=== PATIENT | female | born 1995 | race Caucasian/White ===

== ENCOUNTER 2018-02-20 01:24 | Inpatient (IN) | payer BC ==
[2018-02-20] MEDS ORDERED: Tranexamic Acid 1,000 MG in Sodium Chloride 0.9% 100 ML IV PRN (03:22)
[2018-02-20] MEDS ORDERED: Water For Irrigation,Sterile 1,000 ML Container IRR PRN (03:22)
[2018-02-20] MEDS ORDERED: Misoprostol 200 MCG Tab PO PRN (03:22)
[2018-02-20] MEDS ORDERED: Carboprost Tromethamine 250 MCG/1 ML Amp IM PRN (03:22)
[2018-02-20] MEDS ORDERED: Nalbuphine 10 MG/1 ML Vial IVPUSH PRN (03:22)
[2018-02-20] MEDS ORDERED: Butorphanol 1 MG/ML SDV IVPUSH PRN (03:22)
[2018-02-20] MEDS ORDERED: Methylergonovine 0.2 MG/1 ML Amp IM PRN (03:22)
[2018-02-20] MEDS ORDERED: Lidocaine 1% 50 ML MDV INJECT PRN (03:22)
[2018-02-20] MEDS ORDERED: Sodium Chloride 0.9% 2.5 ML Syringe FLUSH PRN (03:22)
[2018-02-20] MEDS ORDERED: Sodium Chloride 0.9% 10 ML Syringe FLUSH PRN (03:22)
[2018-02-20] MEDS ORDERED: Oxytocin/0.9 % Sodium Chloride 30 UNIT/500 ML BAG IV SCH (03:30)
[2018-02-20] MEDS: Lactated Ringers 1,000 ML IV SCH ×3 (04:06→08:55)
--- NOTE | 2018-02-20 05:13 | PCM.PREANE ---
Preanesthetic Assessment - Anesthesia/Transfusion/Family Hx Anesthesia History: Prior Anesthesia Reaction (States has difficulty waking up) Family History of Anesthesia Reaction: No - Review of Systems General: No Symptoms Pulmonary: No Symptoms Cardiovascular: No Symptoms Gastrointestinal: No Symptoms Neurological: No Symptoms Other: Reports: None (Denies any personal or family hx of bleeding or clotting problems) - Physical Assessment Height: 1.6 m Weight: 85.729 kg ASA Class: 2 Mental Status: Alert & Oriented x3 Airway Class: Mallampati = 2 Dentition: Reports: Normal Dentition ROM/Head Extension: Full - Lab Values: Laboratory Last Values WBC 15.62 K/uL (4.0-11.0) H 02/20/18 03:34 RBC 4.66 M/uL (4.30-5.90) 02/20/18 03:34 Hgb 14.0 g/dL (12.0-16.0) 02/20/18 03:34 Hct 40.0 % (36.0-46.0) 02/20/18 03:34 MCV 85.8 fL (80.0-98.0) 02/20/18 03:34 MCH 30.0 pg (27.0-32.0) 02/20/18 03:34 MCHC 35.0 g/dL (31.0-37.0) 02/20/18 03:34 RDW Std Deviation 41.1 fl (28.0-62.0) 02/20/18 03:34 RDW Coeff of Nakia 14 % (11.0-15.0) 02/20/18 03:34 Plt Count 221 K/uL (150-400) 02/20/18 03:34 MPV 12.30 fL (7.40-12.00) H 02/20/18 03:34 Nucleated RBC % 0.0 /100WBC 02/20/18 03:34 Nucleated RBCs # 0 K/uL 02/20/18 03:34 Blood Type A POSITIVE 02/20/18 03:34 Antibody Screen NEGATIVE 02/20/18 03:34 Cold Antibody Screen POSITIVE 02/20/18 03:34 - Allergies Allergies/Adverse Reactions: Allergies Allergy/AdvReac Type Severity Reaction Status Date / Time No Known Allergies Allergy Verified 02/20/18 01:38 - Acknowledgements Anesthesia Type Planned: Epidural Pt an Appropriate Candidate for the Planned Anesthesia: Yes Alternatives and Risks of Anesthesia Discussed w Pt/Guardian: Yes Pt/Guardian Understands and Agrees with Anesthesia Plan: Yes PreAnesthesia Questionnaire HEENT History: Reports: None Cardiovascular History: Reports: None Respiratory History: Reports: None Gastrointestinal History: Reports: None Genitourinary History: Reports: None TRANSIT CLERK History: Reports: Musculoskeletal History: Reports: None Neurological History: Reports: None Psychiatric History: Reports: Depression Endocrine/Metabolic History: Reports: None Hematologic History: Reports: None Immunologic History: Reports: None Oncologic (Cancer) History: Reports: None Dermatologic History: Reports: None - Infectious Disease History Infectious Disease History: Reports: None - Past Surgical History Head Surgeries/Procedures: Reports: None HEENT Surgical History: Reports: None Cardiovascular Surgical History: Reports: None GI Surgical History: Reports: Appendectomy, Cholecystectomy Endocrine Surgical History: Reports: None - SUBSTANCE USE Smoking Status *Q: Never Smoker Days Per Week of Alcohol Use: 0 Number of Drinks Per Day: 0 Total Drinks Per Week: 0 Recreational Drug Use History: No - HOME MEDS Home Medications: Home Meds Vit W-Ca,Fe,FA(<1 mg) [ Vitamins] 1 each PO DAILY 06/18/16 [ History] Ondansetron HCl [Zofran] 4 mg PO PRN 02/20/18 [History] Ranitidine HCl [Zantac] 150 mg PO PRN 02/20/18 [History] - CURRENT (IN HOUSE) MEDS Current Meds: Current Medications Butorphanol Tartrate (Stadol) 1 mg IVPUSH Q1H PRN PRN Reason: Pain Carboprost Tromethamine (Hemabate Ds) 250 mcg IM ASDIRECTED PRN PRN Reason: Post Hemorrhage Tranexamic Acid 1,000 mg/ (Sodium Chloride) 110 mls @ 660 mls/hr IV ONETIME PRN PRN Reason: Bleeding Lactated Ringer's (Ringers, Lactated) 1,000 mls @ 150 mls/hr IV ASDIRECTED ALEJANDRINA Last Admin: 02/20/18 04:51 Dose: 150 mls/hr Oxytocin/Sodium Chloride (Oxytocin 30 Unit/500 Ml-Ns) 30 unit in 500 mls @ 999 mls/hr IV TITRATE ALEJANDRINA Lidocaine HCl (Xylocaine 1%) 50 ml INJECT .ONCE PRN PRN Reason: Laceration repair Methylergonovine Maleate (Methergine) 0.2 mg IM ASDIRECTED PRN PRN Reason: Post Hemorrhage Misoprostol (Cytotec) 200 mcg PO .ONCE PRN PRN Reason: Post Hemorrhage Nalbuphine HCl (Nubain) 10 mg IVPUSH Q1H PRN PRN Reason: Pain (severe 7-10) Sodium Chloride (Saline Flush) 10 ml FLUSH ASDIRECTED PRN PRN Reason: Keep Vein Open Sodium Chloride (Saline Flush) 2.5 ml FLUSH ASDIRECTED PRN PRN Reason: Keep Vein Open Sterile Water (Sterile Water For Irrigation) 1,000 ml IRR ASDIRECTED PRN PRN Reason: delivery Discontinued Medications Fentanyl/Bupivacaine HCl (Jkwnzedd-Akjza-Dw 2 Mcg/Ml-0.125%) Confirm Administered Dose 100 mls @ as directed EP [place]-[facility] ONE Stop: 02/20/18 04:30
[2018-02-20] MEDS ORDERED: Lanolin 100% Cream 7 GM Tube TOP PRN (09:51)
[2018-02-20] MEDS ORDERED: Bisacodyl 10 MG Supp RECTAL PRN (09:51)
[2018-02-20] MEDS ORDERED: Ibuprofen 400 MG Tab PO PRN (09:51)
[2018-02-20] MEDS ORDERED: Docusate Sodium 100 MG Cap PO PRN (09:51)
[2018-02-20] MEDS ORDERED: Benzocaine/Menthol 20%-0.5% Spray 78 GM Cannister TOP PRN (09:51)
[2018-02-20] MEDS ORDERED: Acetaminophen 500 MG Tab PO PRN ×2 (09:51)
[2018-02-20] MEDS ORDERED: Witch Hazel Medicated Pads 40/Jar TOP PRN (09:51)
[2018-02-20] MEDS ORDERED: oxyCODONE 5 MG Tab PO PRN (09:51)
[2018-02-20] MEDS: Ibuprofen 800 MG Tab PO PRN ×3 (10:46→23:09)
--- NOTE | 2018-02-20 14:50 | OR ---
SURGEON: Maryellen Navarro MD BOX OFFICE CLERK: Lorna Werner MS IV DATE OF PROCEDURE: 02/20/2018 PREOPERATIVE DIAGNOSES: 1. Term at 37 weeks and 2 days. 2. Spontaneous labor. POSTOPERATIVE DIAGNOSES: 1. Term at 37 weeks and 2 days. 2. Spontaneous labor. 3. Delivered. PROCEDURE: Spontaneous vaginal delivery. ANESTHESIA: Epidural. ESTIMATED BLOOD LOSS: 100 mL. COMPLICATIONS: None. DISPOSITION: Mother and baby stable in Labor and Delivery room, bonding. FINDINGS: Male , weight 3240gram , scores 8 and 9 at 1 and 5 minutes respectively. Grossly normal placenta with three-vessel cord. Intact perineum. BRIEF HISTORY: Ms Lord is a 22-year-old G2, P1-0-0-1, who presented at the early hours of this morning at 37 weeks and 2 days gestation with regular contractions since about 6:00 p.m. the previous evening and they had increased in both frequency and intensity. She denied vaginal bleeding. Denied leakage of fluid and reported movement. care was uncomplicated. GBS negative. On admission, she was found to be 4 cm dilated, 80% effaced, station -1. Artificial rupture of membranes was performed with clear amniotic fluid noted. She subsequently requested and received epidural for pain management. Thereafter, she progressed nicely to full dilatation and commenced active pushing. She was set up for delivery in modified dorsal lithotomy position. PROCEDURE IN DETAIL: She had a spontaneous vaginal delivery of live male in direct occipital anterior positions, clear amniotic fluid at delivery, one loose nuchal cord which was easily reduced. Anterior and posterior shoulders and the rest of the baby were delivered without difficulty. Baby was vigorous and cried spontaneously at . The baby was delivered onto the maternal abdomen with the nursery nurse in attendance, stimulating and drying him. With delivery of the , oxytocin infusion, titration was started for active management of third stage of labor. Cord blood and gases samples were obtained. The placenta was delivered by controlled cord traction, appeared to be complete and intact. Examination of the perineum revealed no lacerations. Uterine massage was performed. The uterus was found to be well contracted below the umbilicus. The patient tolerated the procedure well. Sponge, instrument, and needle counts were correct at the end of the delivery. ADUMVIV / MODL /[id number] GARY
--- NOTE | 2018-02-21 07:42 | PCM.PNPP ---
<Cassie Werner - Last Filed: 02/21/18 07:48> - General Info Date of Service: 02/21/18 Admission Dx/Problem (Free Text): 37 2/7 . Subjective Update: Patient is doing well. Pain is controlled with medications. . Lochia WNL. Tolerating diet with no n/v. Urinating. Diarrhea. Ambulating. Anticipate discharge today. Functional Status: Reports: Pain Controlled, Tolerating Diet, Ambulating, Urinating - Review of Systems General: Denies: Fever, Chills HEENT: Denies: Headaches Pulmonary: Denies: Shortness of Breath, Pleuritic Chest Pain Cardiovascular: Denies: Chest Pain, Palpitations, Lightheadedness Gastrointestinal: Reports: Diarrhea. Denies: Abdominal Pain, Nausea, Vomiting Genitourinary: Denies: Dysuria Psychiatric: Reports: No Symptoms - General Info Date of Service: 02/21/18 - Patient Data Vital Signs - Most Recent: Last Vital Signs Temp 36.3 C 02/21/18 03:30 Pulse 81 02/21/18 03:30 Resp 16 02/21/18 03:30 BP 122/77 02/21/18 03:30 Pulse Ox 96 02/21/18 03:30 Weight - Most Recent: 85.729 kg Lab Results - Last 24 Hours: Laboratory Results - last 24 hr 02/20/18 02/21/18 Range/Units 09:27 05:50 Hgb 12.5 (12.0-16.0) g/dL Hct 36.9 (36.0-46.0) % Cord ABG pH 7.213 (7.18-7.38) Cord ABG Base Excess -6 (-10--2) Cord VBG pH 7.384 (7.25-7.45) Cord VBG Base Excess -3 (-10--2) Med Orders - Current: Current Medications Acetaminophen (Tylenol Extra Strength) 500 mg PO Q4H PRN PRN Reason: Pain Acetaminophen (Tylenol Extra Strength) 1,000 mg PO Q4H PRN PRN Reason: Pain Last Admin: 02/21/18 02:27 Dose: 1,000 mg Benzocaine/Menthol (Dermoplast Pain Relief 20%-0.5% [place]) 78 gm TOP ASDIRECTED PRN PRN Reason: Perineal Comfort Measure Bisacodyl (Dulcolax) 10 mg RECTAL .ONCE PRN PRN Reason: Constipation Docusate Sodium (Colace) 100 mg PO BID PRN PRN Reason: Constipation Emollient Ointment (Lansinoh Hpa) 0 gm TOP ASDIRECTED PRN PRN Reason: Sore Nipples Ibuprofen (Motrin) 400 mg PO Q4H PRN PRN Reason: Pain Ibuprofen (Motrin) 800 mg PO Q6H PRN PRN Reason: Pain Last Admin: 02/20/18 23:09 Dose: 800 mg Oxycodone HCl (Oxycodone) 5 mg PO Q2H PRN PRN Reason: Pain Witch Bell (Tucks) 1 pad TOP ASDIRECTED PRN PRN Reason: comfort care Discontinued Medications Butorphanol Tartrate (Stadol) 1 mg IVPUSH Q1H PRN PRN Reason: Pain Carboprost Tromethamine (Hemabate Ds) 250 mcg IM ASDIRECTED PRN PRN Reason: Post Hemorrhage Tranexamic Acid 1,000 mg/ (Sodium Chloride) 110 mls @ 660 mls/hr IV ONETIME PRN PRN Reason: Bleeding Lactated Ringer's (Ringers, Lactated) 1,000 mls @ 150 mls/hr IV ASDIRECTED [facility] Last Admin: 02/20/18 08:55 Dose: 150 mls/hr Oxytocin/Sodium Chloride (Oxytocin 30 Unit/500 Ml-Ns) 30 unit in 500 mls @ 999 mls/hr IV TITRATE [facility] Last Admin: 02/20/18 09:27 Dose: 999 mls/hr Fentanyl/Bupivacaine HCl (Xncqyzha-Oxflk-Lu 2 Mcg/Ml-0.125%) Confirm Administered Dose 100 mls @ as directed EP .STK-MED ONE Stop: 02/20/18 04:30 Last Admin: 02/20/18 06:09 Dose: Not Given Lidocaine HCl (Xylocaine 1%) 50 ml INJECT .ONCE PRN PRN Reason: Laceration repair Methylergonovine Maleate (Methergine) 0.2 mg IM ASDIRECTED PRN PRN Reason: Post Hemorrhage Misoprostol (Cytotec) 200 mcg PO .ONCE PRN PRN Reason: Post Hemorrhage Nalbuphine HCl (Nubain) 10 mg IVPUSH Q1H PRN PRN Reason: Pain (severe 7-10) Sodium Chloride (Saline Flush) 10 ml FLUSH ASDIRECTED PRN PRN Reason: Keep Vein Open Sodium Chloride (Saline Flush) 2.5 ml FLUSH ASDIRECTED PRN PRN Reason: Keep Vein Open Sterile Water (Sterile Water For Irrigation) 1,000 ml IRR ASDIRECTED PRN PRN Reason: delivery - Interaction Disposition, : in Room with Family Interaction: Holding Infant Feeding: Continues to Breastfeed Support Person: - Recovery Exam Fundal Tone: Firm Fundal Level: 2 Fingerbreadths Below Umbilicus Fundal Placement: Midline Lochia Amount: Scant Lochia Color: Rubra/Red Episiotomy/Laceration: None Bladder Status: Voiding Urinary Elimination: Voided - Exam General: Alert, Oriented, No Acute Distress Lungs: Clear to Auscultation, Normal Respiratory Effort Cardiovascular: Regular Rate, Regular Rhythm GI/Abdominal Exam: Soft, Non-Tender Extremities: Pedal Edema Skin: Warm, Dry Psy/Mental Status: Alert - Assessment Assessment:: 37 12/15. Anticipate discharge today. - Plan Plan:: Reviewed discharge instructions. Continue PNV while . Pelvic rest for 6 weeks. Call if fever > 101 or bleeding through a heavy pad in an hour. Follow-up appointment in 6 weeks. <Catarina Landeros - Last Filed: 02/21/18 07:57> - Patient Data Vital Signs - Most Recent: Last Vital Signs Temp 36.3 C 02/21/18 03:30 Pulse 81 02/21/18 03:30 Resp 16 02/21/18 03:30 BP 122/77 02/21/18 03:30 Pulse Ox 96 02/21/18 03:30 Lab Results - Last 24 Hours: Laboratory Results - last 24 hr 02/20/18 02/21/18 Range/Units 09:27 05:50 Hgb 12.5 (12.0-16.0) g/dL Hct 36.9 (36.0-46.0) % Cord ABG pH 7.213 (7.18-7.38) Cord ABG Base Excess -6 (-10--2) Cord VBG pH 7.384 (7.25-7.45) Cord VBG Base Excess -3 (-10--2) Med Orders - Current: Current Medications Acetaminophen (Tylenol Extra Strength) 500 mg PO Q4H PRN PRN Reason: Pain Acetaminophen (Tylenol Extra Strength) 1,000 mg PO Q4H PRN PRN Reason: Pain Last Admin: 02/21/18 02:27 Dose: 1,000 mg Benzocaine/Menthol (Dermoplast Pain Relief 20%-0.5% [place]) 78 gm TOP ASDIRECTED PRN PRN Reason: Perineal Comfort Measure Bisacodyl (Dulcolax) 10 mg RECTAL .ONCE PRN PRN Reason: Constipation Docusate Sodium (Colace) 100 mg PO BID PRN PRN Reason: Constipation Emollient Ointment (Lansinoh Hpa) 0 gm TOP ASDIRECTED PRN PRN Reason: Sore Nipples Ibuprofen (Motrin) 400 mg PO Q4H PRN PRN Reason: Pain Ibuprofen (Motrin) 800 mg PO Q6H PRN PRN Reason: Pain Last Admin: 02/20/18 23:09 Dose: 800 mg Oxycodone HCl (Oxycodone) 5 mg PO Q2H PRN PRN Reason: Pain Witch Bell (Tucks) 1 pad TOP ASDIRECTED PRN PRN Reason: comfort care Discontinued Medications Butorphanol Tartrate (Stadol) 1 mg IVPUSH Q1H PRN PRN Reason: Pain Carboprost Tromethamine (Hemabate Ds) 250 mcg IM ASDIRECTED PRN PRN Reason: Post Hemorrhage Tranexamic Acid 1,000 mg/ (Sodium Chloride) 110 mls @ 660 mls/hr IV ONETIME PRN PRN Reason: Bleeding Lactated Ringer's (Ringers, Lactated) 1,000 mls @ 150 mls/hr IV ASDIRECTED [facility] Last Admin: 02/20/18 08:55 Dose: 150 mls/hr Oxytocin/Sodium Chloride (Oxytocin 30 Unit/500 Ml-Ns) 30 unit in 500 mls @ 999 mls/hr IV TITRATE [facility] Last Admin: 02/20/18 09:27 Dose: 999 mls/hr Fentanyl/Bupivacaine HCl (Zjkhxyfw-Wetvz-Hy 2 Mcg/Ml-0.125%) Confirm Administered Dose 100 mls @ as directed [facility]-MED ONE Stop: 02/20/18 04:30 Last Admin: 02/20/18 06:09 Dose: Not Given Lidocaine HCl (Xylocaine 1%) 50 ml INJECT .ONCE PRN PRN Reason: Laceration repair Methylergonovine Maleate (Methergine) 0.2 mg IM ASDIRECTED PRN PRN Reason: Post Hemorrhage Misoprostol (Cytotec) 200 mcg PO .ONCE PRN PRN Reason: Post Hemorrhage Nalbuphine HCl (Nubain) 10 mg IVPUSH Q1H PRN PRN Reason: Pain (severe 7-10) Sodium Chloride (Saline Flush) 10 ml FLUSH ASDIRECTED PRN PRN Reason: Keep Vein Open Sodium Chloride (Saline Flush) 2.5 ml FLUSH ASDIRECTED PRN PRN Reason: Keep Vein Open Sterile Water (Sterile Water For Irrigation) 1,000 ml IRR ASDIRECTED PRN PRN Reason: delivery - Problem List & Annotations (1) Vaginal delivery SNOMED Code(s): 119937463 Code(s): O80 - ENCOUNTER FOR FULL-TERM UNCOMPLICATED DELIVERY Status: Acute Current Visit: Yes - Problem List Review Problem List Initiated/Reviewed/Updated: Yes - Plan Plan:: PPD#1 after , stable, minimal lochia. Having cramping with , improved with ibuprofen. Discharge instructions reviewed. Discussed diarrhea, she states she has some irritable bowel syndrome, this is not unusual for her and is "better than constipation" She will call if she has any concerns.
[2018-02-21 08:21] VITALS: BP 118/77
--- NOTE | 2018-02-22 07:32 | PCM48HPAN ---
Post Anesthesia Note - EVALUATION WITHIN 48HRS OF ANESTHETIC Vital Signs in Normal Range: Yes Patient Participated in Evaluation: Yes Respiratory Function Stable: Yes Airway Patent: Yes Cardiovascular Function Stable: Yes Hydration Status Stable: Yes Pain Control Satisfactory: Yes Nausea and Vomiting Control Satisfactory: Yes Mental Status Recovered: Yes Resp Rate: 18
== END 2018-02-21 13:00 | disposition home or self-care (01) | DRG 560 ==
LOC: MW.OBCHECK 01:24 → MW.OB 01:27 → MW.OBCHECK 03:22 → MW.OB 03:22 → OBSVTOIN 09:27 → MW.OB 13:50
PROVIDERS: ADMIT Obstetrics & Gynecology; ATTEND Obstetrics & Gynecology
PROC: 10E0XZZ Delivery of Products of Conception, External Approach (ICD-10-PCS; principal; 2018-02-20)
PROC: 10907ZC Drainage of Amniotic Fluid, Therapeutic from Products of Conception, Via Natural or Artificial Opening (ICD-10-PCS; 2018-02-20)
DX: O69.81X0 Labor and delivery complicated by cord around neck, without compression, not applicable or unspecified (principal); Z3A.37 37 weeks gestation of pregnancy; Z37.0 Single live birth
CPT/HCPCS: 36415; 51702; 59025; 59409; 82803; 85014; 85018; 85027; 86156; 86850; 86900; 86901; A9270-GY; J2590; J7120

== ENCOUNTER 2020-12-15 09:04 | Inpatient (IN) | payer BC ==
[2020-12-15] MEDS ORDERED: Sodium Chloride 0.9% 10 ML SDV IV PRN (09:45)
[2020-12-15] MEDS ORDERED: Carboprost Tromethamine 250 MCG/1 ML Amp IM PRN (09:45)
[2020-12-15] MEDS ORDERED: Butorphanol 1 MG/ML SDV IVPUSH PRN (09:45)
[2020-12-15] MEDS ORDERED: Sodium Chloride 0.9% 2.5 ML Syringe FLUSH PRN (09:45)
[2020-12-15] MEDS ORDERED: Water For Irrigation,Sterile 1,000 ML Container IRR PRN (09:45)
[2020-12-15] MEDS ORDERED: Methylergonovine 0.2 MG/1 ML Amp IM PRN (09:45)
[2020-12-15] MEDS ORDERED: Sodium Chloride 0.9% 10 ML Syringe FLUSH PRN (09:45)
[2020-12-15] MEDS ORDERED: Oxytocin/0.9 % Sodium Chloride 30 UNIT/500 ML BAG IV SCH (09:45)
[2020-12-15] MEDS ORDERED: Misoprostol 200 MCG Tab PO PRN (09:45)
[2020-12-15] MEDS ORDERED: Lidocaine 1% 50 ML MDV INJECT PRN (09:45)
[2020-12-15] MEDS ORDERED: Nalbuphine 10 MG/1 ML Vial IVPUSH PRN (09:45)
[2020-12-15] MEDS ORDERED: Tranexamic Acid 1,000 MG in Sodium Chloride 0.9% 100 ML IV PRN (09:45)
[2020-12-15] MEDS ORDERED: Ondansetron 4 MG/2 ML SDV IVPUSH PRN (09:45)
[2020-12-15] MEDS ORDERED: Oxytocin/Lactated Ringers 30 UNIT/500 ML BAG IV SCH (10:00)
[2020-12-15] MEDS: Lactated Ringers 1,000 ML IV SCH ×2 (10:15→10:49)
--- NOTE | 2020-12-15 10:39 | PCM.LDHP ---
L&D History of Present Illness - General Date of Service: 12/15/20 Admit Problem/Dx: Patient Status Order with Admit Dx/Problem 12/15/20 09:05 Patient Status [ADT] Routine Admission Diagnosis/Problem Admission Diagnosis/Problem Source of Information: Patient History Limitations: Reports: No Limitations - History of Present Illness Introduction:: 25yo @39w GA here with contractions x3hrs. Patient denies VB, LOF. Good FM care unremarkable. labs: A+, Abs screen neg, RI, RPR NR, HBsAg neg, HIV neg, GBS neg. - Related Data Allergies/Adverse Reactions: Allergies Allergy/AdvReac Type Severity Reaction Status Date / Time No Known Allergies Allergy Verified 12/15/20 09:20 Home Medications: Home Meds Vit Calc,Iron,Folic [ Vitamins] 1 each PO DAILY 06/18/16 [History] Ranitidine HCl [Zantac] 150 mg PO PRN 02/20/18 [History] ondansetron HCL [Zofran] 4 mg PO PRN 02/20/18 [History] Ibuprofen [IJD: Ibuprofen] 800 mg PO Q6H PRN #30 tablet 02/21/18 [Rx] Past Medical History HEENT History: Reports: None Cardiovascular History: Reports: None Respiratory History: Reports: None Gastrointestinal History: Reports: None Genitourinary History: Reports: None 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: Other OB/BYN History: ovarian cysts Musculoskeletal History: Reports: None Neurological History: Reports: None Psychiatric History: Reports: Depression Endocrine/Metabolic History: Reports: None Hematologic History: Reports: None Immunologic History: Reports: None Oncologic (Cancer) History: Reports: None Dermatologic History: Reports: None - Infectious Disease History Infectious Disease History: Reports: None - Past Surgical History Head Surgeries/Procedures: Reports: None HEENT Surgical History: Reports: None Cardiovascular Surgical History: Reports: None GI Surgical History: Reports: Appendectomy, Cholecystectomy Endocrine Surgical History: Reports: None Social & Family History - Family History Cardiac: Reports: Other (See Below) Other Cardiac Family History: heart disease OBGYN: Reports: Neurological: Reports: Alzheimers Disease Endocrine/Metabolic: Reports: Diabetes, type II Oncologic: Reports: Leukemia, Pancreatic, Renal, Other (See Below) Other Oncologic Family History: renal cell carcinoma - Caffeine Use Caffeine Use: Reports: Soda H&P Review of Systems - Review of Systems: Review Of Systems: See Below General: Reports: No Symptoms HEENT: Reports: No Symptoms Pulmonary: Reports: No Symptoms Cardiovascular: Reports: No Symptoms Gastrointestinal: Reports: No Symptoms Genitourinary: Reports: No Symptoms Musculoskeletal: Reports: No Symptoms Skin: Reports: No Symptoms Psychiatric: Reports: No Symptoms Neurological: Reports: No Symptoms Hematologic/Lymphatic: Reports: No Symptoms Immunologic: Reports: No Symptoms L&D Exam - Exam Exam: See Below - Vital Signs Weight: 92.533 kg - OB Specific Contraction Duration (sec): 30 Contraction Frequency (min): 2 Contraction Intensity: Moderate Movement: Active Heart Rate (FHR) Variability: Moderate (6-25 bmp) Presentation: Vertex Estimated Weight: [id number] - Avila Score Avila Score Cervix Position: Midposition Avila Score Consistency: Soft Avila Score Effacement: >80% Avila Score Dilation: > 5 cm Avila Score Infant's Station: -3 Avila Score Total: 9 - Exam General: Alert, Oriented Neck: Supple Lungs: Normal Respiratory Effort Cardiovascular: Regular Rate GI/Abdominal Exam: Soft Extremities: Normal Inspection Psychiatric: Alert, Normal Affect, Normal Mood - Patient Data Lab Results Last 24 hrs: Laboratory Results - last 24 hr 12/15/20 Range/Units 09:55 WBC 10.65 (4.0-11.0) K/uL RBC 4.68 (4.30-5.90) M/uL Hgb 13.9 (12.0-16.0) g/dL Hct 41.0 (36.0-46.0) % MCV 87.6 (80.0-98.0) fL MCH 29.7 (27.0-32.0) pg MCHC 33.9 (31.0-37.0) g/dL RDW Std Deviation 43.4 (28.0-62.0) fl RDW Coeff of Nakia 14 (11.0-15.0) % Plt Count 169 (150-400) K/uL MPV 13.00 H (7.40-12.00) fL Nucleated RBC % 0.0 /100WBC Nucleated RBCs # 0 K/uL Result Diagrams: 12/15/20 09:55 - Problem List (1) Term SNOMED Code(s): 13488125 ICD Code: Z34.90 - ENCNTR FOR SUPRVSN OF NORMAL , UNSP, UNSP TRIMESTER Status: Acute Current Visit: Yes (2) Normal labor SNOMED Code(s): 38063449 ICD Code: O80 - ENCOUNTER FOR FULL-TERM UNCOMPLICATED DELIVERY; Z37.9 - OUTCOME OF DELIVERY, UNSPECIFIED Status: Acute Current Visit: Yes Problem List Initiated/Reviewed/Updated: Yes Orders Last 24hrs: Active Orders 24 hr Category Date Time Status Patient Status [ADT] Routine ADT 12/15/20 09:05 Active Heart Tones [RC] CONTINUOUS Care 12/15/20 09:45 Active Non Stress Test [RC] PER UNIT ROUTINE Care 12/15/20 09:20 Active Notify Provider [RC] PRN Care 12/15/20 09:45 Active Up ad Zari [RC] ASDIRECTED Care 12/15/20 09:20 Active Vaginal Exam [RC] Click to Edit Care 12/15/20 09:20 Active Vaginal Exam [RC] PRN Care 12/15/20 09:45 Active Vital Signs [RC] PER UNIT ROUTINE Care 12/15/20 09:20 Active CORONAVIRUS COVID-19 ELIANE [MOLEC] Routine Lab 12/15/20 10:00 Received RPR (SYPHILIS SERO) W/ RFLX [REF] Routine Lab 12/15/20 09:55 Received TYPE AND SCREEN [BBK] Routine Lab 12/15/20 09:55 Received Butorphanol [Stadol] Med 12/15/20 09:45 Active 1 mg IVPUSH Q1H PRN Carboprost Tromethamine [Hemabate DS] Med 12/15/20 09:45 Active 250 mcg IM ASDIRECTED PRN Lactated Ringers [Ringers, Lactated] 1,000 ml Med 12/15/20 09:45 Active IV ASDIRECTED Lidocaine 1% [Xylocaine 1%] Med 12/15/20 09:45 Active 50 ml INJECT ONETIME PRN Methylergonovine [Methergine] Med 12/15/20 09:45 Active 0.2 mg IM ASDIRECTED PRN Nalbuphine [Nubain] Med 12/15/20 09:45 Active 10 mg IVPUSH Q1H PRN Ondansetron [Zofran] Med 12/15/20 09:45 Active 4 mg IVPUSH Q4H PRN Oxytocin/0.9 % Sodium Chloride [Oxytocin 30 Unit/500 ML Med 12/15/20 09:45 Active -NS] 30 unit in 500 ml IV TITRATE Oxytocin/Lactated Ringers [Pitocin in LR 30 Units/500 Med 12/15/20 10:00 Active ML] 30 unit in 500 ml IV TITRATE Sodium Chloride 0.9% [Normal Saline] Med 12/15/20 09:45 Active 10 ml IV ASDIRECTED PRN Sodium Chloride 0.9% [Saline Flush] Med 12/15/20 09:45 Active 10 ml FLUSH ASDIRECTED PRN Sodium Chloride 0.9% [Saline Flush] Med 12/15/20 09:45 Active 2.5 ml FLUSH ASDIRECTED PRN Tranexamic Acid [Cyklokapron] 1,000 mg Med 12/15/20 09:45 Active Sodium Chloride 0.9% [Normal Saline] 100 ml IV ONETIME Water For Irrigation,Sterile [Sterile Water for Med 12/15/20 09:45 Active Irrigation] 1,000 ml IRR ASDIRECTED PRN miSOPROStoL [Cytotec] Med 12/15/20 09:45 Active 200 mcg PO ONETIME PRN Peripheral IV Insertion Adult [OM.PC] Routine Oth 12/15/20 09:45 Ordered Resuscitation Status Routine Resus Stat 12/15/20 09:20 Ordered Medication Orders Butorphanol Tartrate (Stadol) 1 mg IVPUSH Q1H PRN PRN Reason: Pain Carboprost Tromethamine (Hemabate Ds) 250 mcg IM ASDIRECTED PRN PRN Reason: Post Hemorrhage Lactated Ringer's (Ringers, Lactated) 1,000 mls @ 150 mls/hr IV ASDIRECTED ALEJANDRINA Last Admin: 12/15/20 10:15 Dose: 150 mls/hr Documented by: FRAN Oxytocin/Sodium Chloride (Oxytocin 30 Unit/500 Ml-Ns) 30 unit in 500 mls @ 500 mls/hr IV TITRATE [facility] Tranexamic Acid 1,000 mg/ (Sodium Chloride) 110 mls @ 660 mls/hr IV ONETIME PRN PRN Reason: Bleeding Oxytocin/Lactated Ringer's (Pitocin In Lr 30 Units/500 Ml) 30 unit in 500 mls @ 2 mls/hr IV TITRATE ALEJANDRINA; Protocol Lidocaine HCl (Xylocaine 1%) 50 ml INJECT ONETIME PRN PRN Reason: Laceration repair Methylergonovine Maleate (Methergine) 0.2 mg IM ASDIRECTED PRN PRN Reason: Post Hemorrhage Misoprostol (Cytotec) 200 mcg PO ONETIME PRN PRN Reason: Post Hemorrhage Nalbuphine HCl (Nubain) 10 mg IVPUSH Q1H PRN PRN Reason: Pain (severe 7-10) Ondansetron HCl (Zofran) 4 mg IVPUSH Q4H PRN PRN Reason: Nausea/Vomiting Sodium Chloride (Saline Flush) 10 ml FLUSH ASDIRECTED PRN PRN Reason: Keep Vein Open Sodium Chloride (Saline Flush) 2.5 ml FLUSH ASDIRECTED PRN PRN Reason: Keep Vein Open Sodium Chloride (Normal Saline) 10 ml IV ASDIRECTED PRN PRN Reason: IV Use Sterile Water (Sterile Water For Irrigation) 1,000 ml IRR ASDIRECTED PRN PRN Reason: delivery Assessment/Plan Comment:: 25yo at 39wGA here in active labor. Cat 1 strip. Avila score 9 Expectant management. Epidural PRN
[2020-12-15] MEDS ORDERED: fentaNYL 100 MCG/2 ML SDV ONE (10:49)
[2020-12-15] MEDS ORDERED: Ropivacaine 0.2% PF 2 MG/ML 20 ML SDV ONE (10:49)
[2020-12-15] MEDS ORDERED: Ropivacaine HCl/PF 0 ML ONE (10:49)
--- NOTE | 2020-12-15 11:23 | PCM.PREANE ---
Preanesthetic Assessment - Procedure Proposed Procedure: ASTRID vs Intrathecal - Anesthesia/Transfusion/Family Hx Anesthesia History: Prior Anesthesia Without Reaction (States has difficulty waking up) Family History of Anesthesia Reaction: No Transfusion History: No Prior Transfusion(s) Intubation History: Unknown - Review of Systems General: No Symptoms Pulmonary: No Symptoms Cardiovascular: No Symptoms Gastrointestinal: No Symptoms Neurological: No Symptoms Other: Reports: None - Physical Assessment NPO Status Date: 12/15/20 NPO Status Time: 11:19 Height: 1.6 m Weight: 92.533 kg ASA Class: 2 Mental Status: Alert & Oriented x3 Airway Class: Mallampati = 2 Dentition: Reports: Normal Dentition Thyro-Mental Finger Breadths: 3 Mouth Opening Finger Breadths: 3 ROM/Head Extension: Full Lungs: Clear to Auscultation Cardiovascular: Regular Rate - Lab Values: Laboratory Last Values WBC 10.65 K/uL (4.0-11.0) 12/15/20 09:55 RBC 4.68 M/uL (4.30-5.90) 12/15/20 09:55 Hgb 13.9 g/dL (12.0-16.0) 12/15/20 09:55 Hct 41.0 % (36.0-46.0) 12/15/20 09:55 MCV 87.6 fL (80.0-98.0) 12/15/20 09:55 MCH 29.7 pg (27.0-32.0) 12/15/20 09:55 MCHC 33.9 g/dL (31.0-37.0) 12/15/20 09:55 RDW Std Deviation 43.4 fl (28.0-62.0) 12/15/20 09:55 RDW Coeff of Nakia 14 % (11.0-15.0) 12/15/20 09:55 Plt Count 169 K/uL (150-400) 12/15/20 09:55 MPV 13.00 fL (7.40-12.00) H 12/15/20 09:55 Nucleated RBC % 0.0 /100WBC 12/15/20 09:55 Nucleated RBCs # 0 K/uL 12/15/20 09:55 SARS-CoV-2 RNA (ELIANE) NEGATIVE (NEGATIVE) 12/15/20 10:00 Blood Type A POSITIVE 12/15/20 09:55 Antibody Screen NEGATIVE 12/15/20 09:55 - Allergies Allergies/Adverse Reactions: Allergies Allergy/AdvReac Type Severity Reaction Status Date / Time No Known Allergies Allergy Verified 12/15/20 09:20 - Anesthesia Plan Pre-Op Medication Ordered: None - Acknowledgements Anesthesia Type Planned: Spinal Pt an Appropriate Candidate for the Planned Anesthesia: Yes Alternatives and Risks of Anesthesia Discussed w Pt/Guardian: Yes Pt/Guardian Understands and Agrees with Anesthesia Plan: Yes Additional Comments: Patient @ 5cm when called. Currently @ 8cm. Pain 10+/10. Active labor. Discussed with patient and physician. Opted for for intrathecal. Discussed, ? answered, permit signed, will proceed. PreAnesthesia Questionnaire HEENT History: Reports: None Cardiovascular History: Reports: None Respiratory History: Reports: None Gastrointestinal History: Reports: None Genitourinary History: Reports: None [employer]PER[employer] History: Reports: Other OB/BYN History: ovarian cysts Musculoskeletal History: Reports: None Neurological History: Reports: None Psychiatric History: Reports: Depression Endocrine/Metabolic History: Reports: None Hematologic History: Reports: None Immunologic History: Reports: None Oncologic (Cancer) History: Reports: None Dermatologic History: Reports: None - Infectious Disease History Infectious Disease History: Reports: None - Past Surgical History Head Surgeries/Procedures: Reports: None HEENT Surgical History: Reports: None Cardiovascular Surgical History: Reports: None GI Surgical History: Reports: Appendectomy, Cholecystectomy Endocrine Surgical History: Reports: None - HOME MEDS Home Medications: Home Meds Vit Calc,Iron,Folic [ Vitamins] 1 each PO DAILY 06/18/16 [History] Ranitidine HCl [Zantac] 150 mg PO PRN 02/20/18 [History] ondansetron HCL [Zofran] 4 mg PO PRN 02/20/18 [History] Ibuprofen [IJD: Ibuprofen] 800 mg PO Q6H PRN #30 tablet 02/21/18 [Rx] - CURRENT (IN HOUSE) MEDS Current Meds: Current Medications Butorphanol Tartrate (Stadol) 1 mg IVPUSH Q1H PRN PRN Reason: Pain Carboprost Tromethamine (Hemabate Ds) 250 mcg IM ASDIRECTED PRN PRN Reason: Post Hemorrhage Lactated Ringer's (Ringers, Lactated) 1,000 mls @ 150 mls/hr IV ASDIRECTED ALEJANDRINA Last Admin: 12/15/20 10:49 Dose: 999 mls/hr Documented by: Oxytocin/Sodium Chloride (Oxytocin 30 Unit/500 Ml-Ns) 30 unit in 500 mls @ 500 mls/hr IV TITRATE [facility] Tranexamic Acid 1,000 mg/ (Sodium Chloride) 110 mls @ 660 mls/hr IV ONETIME PRN PRN Reason: Bleeding Oxytocin/Lactated Ringer's (Pitocin In Lr 30 Units/500 Ml) 30 unit in 500 mls @ 2 mls/hr IV TITRATE [facility]; Protocol Lidocaine HCl (Xylocaine 1%) 50 ml INJECT ONETIME PRN PRN Reason: Laceration repair Methylergonovine Maleate (Methergine) 0.2 mg IM ASDIRECTED PRN PRN Reason: Post Hemorrhage Misoprostol (Cytotec) 200 mcg PO ONETIME PRN PRN Reason: Post Hemorrhage Nalbuphine HCl (Nubain) 10 mg IVPUSH Q1H PRN PRN Reason: Pain (severe 7-10) Ondansetron HCl (Zofran) 4 mg IVPUSH Q4H PRN PRN Reason: Nausea/Vomiting Sodium Chloride (Saline Flush) 10 ml FLUSH ASDIRECTED PRN PRN Reason: Keep Vein Open Sodium Chloride (Saline Flush) 2.5 ml FLUSH ASDIRECTED PRN PRN Reason: Keep Vein Open Sodium Chloride (Normal Saline) 10 ml IV ASDIRECTED PRN PRN Reason: IV Use Sterile Water (Sterile Water For Irrigation) 1,000 ml IRR ASDIRECTED PRN PRN Reason: delivery Discontinued Medications Fentanyl (Sublimaze) Confirm Administered Dose 100 mcg .ROUTE .STK-MED ONE Stop: 12/15/20 10:50 Ropivacaine (Naropin 0.2%) Confirm Administered Dose 100 mls @ as directed .ROUTE .STK-MED ONE Stop: 12/15/20 10:50 Ropivacaine (Naropin 0.2%) Confirm Administered Dose 20 ml .ROUTE .STK-MED ONE Stop: 12/15/20 10:50
--- NOTE | 2020-12-15 12:11 | PCM.DEL ---
L & D Note - General Info Date of Service: 12/15/20 Mother's Due Date: 12/22/20 - Delivery Note Labor: Spontaneous Delivery Outcome: Livebirth Infant Delivery Method: Spontaneous Vaginal Delivery-Single Presentation: Vertex Nuchal Cord: Present, Reduced Anesthesia Type: Intrathecal Episiotomy Type: None Laceration: None Placenta: Intact Cord: 3 Vessels Estimated Blood Loss: 200 Resuscitation Needed: No [place]: Suctioned, Stimulated, Warmed Score 1 min: 8 Score 5 min: 9 Delivery Comments (Free Text/Narrative):: 25yo G3 now P3003 @ 39w GA after uncomplicated . course was unremarkable. of a live female, weight pending and Apgars 8/9. Delivered CARTER, loose nuchal cord x1, No meconium. Vertex and body delivered without difficulty. Cord clamped and cut. Nose and mouth bulb suctioned; Baby placed on Mom's abdomen. Placenta delivered spontaneously, intact. Fundus firm, minimal bleeding. Placenta appears intact with 3 vessel cord. Perineum and vagina inspected, no lacerations. EBL 200cc. Patient tolerated procedure well, recovering in LDR. Infant by her side. - General Info Date of Service: 12/15/20 Admission Dx/Problem (Free Text): Patient Status Order with Admit Dx/Problem 12/15/20 09:05 Patient Status [ADT] Routine Admission Diagnosis/Problem Admission Diagnosis/Problem Subjective Update: Upon arrival, mother was found to be 3-4cm dialted. She progressed quickly to 6 then 9cm. At her request, intrathecal analgesia was administered. AROM was performed shortly after, clear moderate amount of fluid. Less than 15mns later she was fully dilated, ready to push. Functional Status: Reports: Pain Controlled - Review of Systems General: Reports: No Symptoms HEENT: Reports: No Symptoms Pulmonary: Reports: No Symptoms Cardiovascular: Reports: No Symptoms Gastrointestinal: Reports: No Symptoms Genitourinary: Reports: No Symptoms Musculoskeletal: Reports: No Symptoms Skin: Reports: No Symptoms Neurological: Reports: No Symptoms Psychiatric: Reports: No Symptoms - Patient Data Weight - Most Recent: 92.533 kg Lab Results Last 24 Hours: Laboratory Results - last 24 hr 12/15/20 12/15/20 12/15/20 Range/Units 09:55 09:55 10:00 WBC 10.65 (4.0-11.0) K/uL RBC 4.68 (4.30-5.90) M/uL Hgb 13.9 (12.0-16.0) g/dL Hct 41.0 (36.0-46.0) % MCV 87.6 (80.0-98.0) fL MCH 29.7 (27.0-32.0) pg MCHC 33.9 (31.0-37.0) g/dL RDW Std Deviation 43.4 (28.0-62.0) fl RDW Coeff of Nakia 14 (11.0-15.0) % Plt Count 169 (150-400) K/uL MPV 13.00 H (7.40-12.00) fL Nucleated RBC % 0.0 /100WBC Nucleated RBCs # 0 K/uL SARS-CoV-2 RNA (ELIANE) NEGATIVE (NEGATIVE) Blood Type A POSITIVE Antibody Screen NEGATIVE Med Orders - Current: Current Medications Butorphanol Tartrate (Stadol) 1 mg IVPUSH Q1H PRN PRN Reason: Pain Carboprost Tromethamine (Hemabate Ds) 250 mcg IM ASDIRECTED PRN PRN Reason: Post Hemorrhage Lactated Ringer's (Ringers, Lactated) 1,000 mls @ 150 mls/hr IV ASDIRECTED [facility] Last Admin: 12/15/20 10:49 Dose: 999 mls/hr Documented by: Oxytocin/Sodium Chloride (Oxytocin 30 Unit/500 Ml-Ns) 30 unit in 500 mls @ 500 mls/hr IV TITRATE [facility] Last Admin: 12/15/20 11:53 Dose: 500 mls/hr Documented by: Tranexamic Acid 1,000 mg/ (Sodium Chloride) 110 mls @ 660 mls/hr IV ONETIME PRN PRN Reason: Bleeding Oxytocin/Lactated Ringer's (Pitocin In Lr 30 Units/500 Ml) 30 unit in 500 mls @ 2 mls/hr IV TITRATE [facility]; Protocol Lidocaine HCl (Xylocaine 1%) 50 ml INJECT ONETIME PRN PRN Reason: Laceration repair Methylergonovine Maleate (Methergine) 0.2 mg IM ASDIRECTED PRN PRN Reason: Post Hemorrhage Misoprostol (Cytotec) 200 mcg PO ONETIME PRN PRN Reason: Post Hemorrhage Nalbuphine HCl (Nubain) 10 mg IVPUSH Q1H PRN PRN Reason: Pain (severe 7-10) Ondansetron HCl (Zofran) 4 mg IVPUSH Q4H PRN PRN Reason: Nausea/Vomiting Sodium Chloride (Saline Flush) 10 ml FLUSH ASDIRECTED PRN PRN Reason: Keep Vein Open Sodium Chloride (Saline Flush) 2.5 ml FLUSH ASDIRECTED PRN PRN Reason: Keep Vein Open Sodium Chloride (Normal Saline) 10 ml IV ASDIRECTED PRN PRN Reason: IV Use Sterile Water (Sterile Water For Irrigation) 1,000 ml IRR ASDIRECTED PRN PRN Reason: delivery Discontinued Medications Fentanyl (Sublimaze) Confirm Administered Dose 100 mcg .ROUTE .STK-MED ONE Stop: 12/15/20 10:50 Ropivacaine (Naropin 0.2%) Confirm Administered Dose 100 mls @ as directed .ROUTE .STK-MED ONE Stop: 12/15/20 10:50 Ropivacaine (Naropin 0.2%) Confirm Administered Dose 20 ml .ROUTE .STK-MED ONE Stop: 12/15/20 10:50 - Exam General: Alert, Oriented Neck: Supple Lungs: Normal Respiratory Effort Cardiovascular: Regular Rate GI/Abdominal Exam: Soft, Non-Tender (Female) Exam: Normal External Exam Extremities: No Pedal Edema Psy/Mental Status: Alert, Normal Affect, Normal Mood - Problem List & Annotations (1) Term SNOMED Code(s): 45727217 Code(s): Z34.90 - ENCNTR FOR SUPRVSN OF NORMAL , UNSP, UNSP TRIMESTER Status: Acute Current Visit: Yes (2) Normal labor SNOMED Code(s): 40963171 Code(s): O80 - ENCOUNTER FOR FULL-TERM UNCOMPLICATED DELIVERY; Z37.9 - OUTCOME OF DELIVERY, UNSPECIFIED Status: Acute Current Visit: Yes (3) Term delivered SNOMED Code(s): 26608034, 125731526 Code(s): O80 - ENCOUNTER FOR FULL-TERM UNCOMPLICATED DELIVERY Status: Acute Current Visit: Yes - Problem List Review Problem List Initiated/Reviewed/Updated: Yes - My Orders Last 24 Hours: My Active Orders 12/15/20 09:05 Patient Status [ADT] Routine 12/15/20 09:20 Non Stress Test [RC] PER UNIT ROUTINE Up ad Zari [RC] ASDIRECTED Vaginal Exam [RC] Click to Edit Vital Signs [RC] PER UNIT ROUTINE Resuscitation Status Routine 12/15/20 09:45 Heart Tones [RC] CONTINUOUS Notify Provider [RC] PRN Vaginal Exam [RC] PRN Butorphanol [Stadol] 1 mg IVPUSH Q1H PRN Carboprost Tromethamine [Hemabate DS] 250 mcg IM ASDIRECTED PRN Lactated Ringers [Ringers, Lactated] 1,000 ml IV ASDIRECTED Lidocaine 1% [Xylocaine 1%] 50 ml INJECT ONETIME PRN Methylergonovine [Methergine] 0.2 mg IM ASDIRECTED PRN Nalbuphine [Nubain] 10 mg IVPUSH Q1H PRN Ondansetron [Zofran] 4 mg IVPUSH Q4H PRN Oxytocin/0.9 % Sodium Chloride [Oxytocin 30 Unit/500 ML-NS] 30 unit in 500 ml IV TITRATE Sodium Chloride 0.9% [Normal Saline] 10 ml IV ASDIRECTED PRN Sodium Chloride 0.9% [Saline Flush] 10 ml FLUSH ASDIRECTED PRN Sodium Chloride 0.9% [Saline Flush] 2.5 ml FLUSH ASDIRECTED PRN Tranexamic Acid [Cyklokapron] 1,000 mg Sodium Chloride 0.9% [Normal Saline] 100 ml IV ONETIME Water For Irrigation,Sterile [Sterile Water for Irrigation] 1,000 ml IRR ASDIRECTED PRN miSOPROStoL [Cytotec] 200 mcg PO ONETIME PRN Peripheral IV Insertion Adult [OM.PC] Routine 12/15/20 09:55 RPR (SYPHILIS SERO) W/ RFLX [REF] Routine 12/15/20 10:00 Oxytocin/Lactated Ringers [Pitocin in LR 30 Units/500 ML] 30 unit in 500 ml IV TITRATE - Plan Plan:: S/P uncomplicated at 39w GA. Mother and baby doing well Routine care
[2020-12-15] MEDS ORDERED: Ibuprofen 400 MG Tab PO PRN (16:28)
[2020-12-15] MEDS ORDERED: Witch Hazel Medicated Pads 40/Jar TOP PRN (16:28)
[2020-12-15] MEDS ORDERED: Lanolin 100% Cream 7 GM Tube TOP PRN (16:28)
[2020-12-15] MEDS ORDERED: Acetaminophen 500 MG Tab PO PRN (16:28)
[2020-12-15] MEDS ORDERED: Docusate Sodium 100 MG Cap PO PRN (16:28)
[2020-12-15] MEDS ORDERED: Bisacodyl 10 MG Supp RECTAL PRN (16:28)
[2020-12-15] MEDS ORDERED: Benzocaine/Menthol 20%-0.5% Spray 78 GM Cannister TOP PRN (16:28)
[2020-12-15] MEDS: Acetaminophen 500 MG Tab PO PRN ×2 (16:39→21:49)
[2020-12-15] MEDS: Ibuprofen 800 MG Tab PO PRN (16:40)
--- NOTE | 2020-12-15 19:53 | PCM48HPAN ---
Post Anesthesia Note - EVALUATION WITHIN 48HRS OF ANESTHETIC Vital Signs in Normal Range: Yes Patient Participated in Evaluation: Yes Respiratory Function Stable: Yes Airway Patent: Yes Cardiovascular Function Stable: Yes Hydration Status Stable: Yes Pain Control Satisfactory: Yes Nausea and Vomiting Control Satisfactory: Yes Mental Status Recovered: Yes Vital Signs: Last Vital Signs Temp 36.8 C 12/15/20 19:43 Pulse 72 12/15/20 19:43 Resp 16 12/15/20 19:43 BP 111/87 12/15/20 19:43 Pulse Ox 98 12/15/20 19:43 - COMMENTS/OBSERVATIONS Free Text/Narrative:: Doing well. No problems post.
[2020-12-16] MEDS: Ibuprofen 800 MG Tab PO PRN (04:37)
[2020-12-16] MEDS: Acetaminophen 500 MG Tab PO PRN (08:12)
[2020-12-16 08:19] VITALS: BP 122/76; PULSE 64
--- NOTE | 2020-12-16 18:18 | PCM.DCSUM1 ---
Discharge Summary - Hospital Course Free Text/Narrative:: 25yo G3 now P3003 @ 39w GA after uncomplicated . course was unremarkable. of a live female, Apgars 8/9. No lacerations. EBL 200cc. Patient tolerated procedure well. course has been unremarkable Diagnosis: Stroke: No - Discharge Data Discharge Date: 12/16/20 Discharge Disposition: Home, Self-Care 01 Condition: Good - Referral to Home Health Primary Care Physician: PCP None - Discharge Diagnosis/Problem(s) (1) Term SNOMED Code(s): 40281538 ICD Code: Z34.90 - ENCNTR FOR SUPRVSN OF NORMAL , UNSP, UNSP TRIMESTER Status: Acute (2) Normal labor SNOMED Code(s): 18241254 ICD Code: O80 - ENCOUNTER FOR FULL-TERM UNCOMPLICATED DELIVERY; Z37.9 - OUTCOME OF DELIVERY, UNSPECIFIED Status: Acute (3) Term delivered SNOMED Code(s): 78605908, 461912127 ICD Code: O80 - ENCOUNTER FOR FULL-TERM UNCOMPLICATED DELIVERY Status: Acute - Patient Instructions Diet: Regular Diet as Tolerated Activity: As Tolerated, Rest and Relax Today Driving: May Drive Today Showering/Bathing: May Shower Notify Provider of: Fever, Increased Pain, Swelling and Redness, Nausea and/or Vomiting - Discharge Plan *PRESCRIPTION DRUG MONITORING PROGRAM REVIEWED*: Not Applicable *COPY OF PRESCRIPTION DRUG MONITORING REPORT IN PATIENT KRISTAN: Not Applicable Home Medications: Home Meds Vit Calc,Iron,Folic [ Vitamins] 1 each PO DAILY 06/18/16 [History] Ranitidine HCl [Zantac] 150 mg PO PRN 02/20/18 [History] ondansetron HCL [Zofran] 4 mg PO PRN 02/20/18 [History] Ibuprofen [IJD: Ibuprofen] 800 mg PO Q6H PRN #30 tablet 02/21/18 [Rx] Patient Handouts: Care After Vaginal Delivery Referrals: [facility] [Outside] Tenzin Alexander MD [Physician] - 01/27/21 10:45 am (Your post appointment is on 01/27/21 at 10:[address] Alexander. Masks are required.) - Discharge Summary/Plan Comment DC Time >30 min.: Yes Discharge Summary/Plan Comment: Patient ready for discharge - General Info Date of Service: 12/16/20 Admission Dx/Problem (Free Text: Patient Status Order with Admit Dx/Problem 12/15/20 09:05 Patient Status [ADT] Routine Admission Diagnosis/Problem Admission Diagnosis/Problem Subjective Update: Patient is doing well. Minimal bleeding. Pain well controlled Tolerating PO. Voiding without burning - Review of Systems General: Reports: No Symptoms HEENT: Reports: No Symptoms Pulmonary: Reports: No Symptoms Cardiovascular: Reports: No Symptoms Gastrointestinal: Reports: No Symptoms Genitourinary: Reports: No Symptoms Musculoskeletal: Reports: No Symptoms Skin: Reports: No Symptoms Neurological: Reports: No Symptoms Psychiatric: Reports: No Symptoms - Patient Data Vitals - Most Recent: Last Vital Signs Temp 97.9 F 12/16/20 08:18 Pulse 64 12/16/20 08:18 Resp 16 12/16/20 08:18 BP 122/76 12/16/20 08:18 Pulse Ox 98 12/16/20 08:18 Weight - Most Recent: 92.533 kg Lab Results - Last 24 hrs: Laboratory Results - last 24 hr 12/16/20 Range/Units 05:43 Hgb 11.4 L (12.0-16.0) g/dL Hct 34.6 L (36.0-46.0) % Med Orders - Current: Current Medications Discontinued Medications Acetaminophen (Tylenol Extra Strength) 500 mg PO Q4H PRN PRN Reason: Pain Acetaminophen (Tylenol Extra Strength) 1,000 mg PO Q4H PRN PRN Reason: Pain Last Admin: 12/16/20 08:12 Dose: 1,000 mg Documented by: Benzocaine/Menthol (Dermoplast Pain Relief 20%-0.5% Venus) 78 gm TOP ASDIRECTED PRN PRN Reason: Perineal Comfort Measure Bisacodyl (Dulcolax) 10 mg RECTAL ONETIME PRN PRN Reason: Constipation Butorphanol Tartrate (Stadol) 1 mg IVPUSH Q1H PRN PRN Reason: Pain Carboprost Tromethamine (Hemabate Ds) 250 mcg IM ASDIRECTED PRN PRN Reason: Post Hemorrhage Docusate Sodium (Colace) 100 mg PO BID PRN PRN Reason: Constipation Emollient Ointment (Lansinoh Hpa) 0 gm TOP ASDIRECTED PRN PRN Reason: Sore Nipples Fentanyl (Sublimaze) Confirm Administered Dose 100 mcg .ROUTE .Collective-MED ONE Stop: 12/15/20 10:50 Last Admin: 12/15/20 23:48 Dose: Not Given Documented by: Lactated Ringer's (Ringers, Lactated) 1,000 mls @ 150 mls/hr IV ASDIRECTED ALEJANDRINA Last Admin: 12/15/20 10:49 Dose: 999 mls/hr Documented by: Oxytocin/Sodium Chloride (Oxytocin 30 Unit/500 Ml-Ns) 30 unit in 500 mls @ 500 mls/hr IV TITRATE ALE[facility]ANDR[facility] Last Admin: 12/15/20 11:53 Dose: 500 mls/hr Documented by: Tranexamic Acid 1,000 mg/ (Sodium Chloride) 110 mls @ 660 mls/hr IV ONETIME PRN PRN Reason: Bleeding Oxytocin/Lactated Ringer's (Pitocin In Lr 30 Units/500 Ml) 30 unit in 500 mls @ 2 mls/hr IV TITRATE [facility]; Protocol Ropivacaine (Naropin 0.2%) Confirm Administered Dose 100 mls @ as directed .ROUTE .Collective-Storyz ONE Stop: 12/15/20 10:50 Last Admin: 12/15/20 23:47 Dose: Not Given Documented by: Ibuprofen (Motrin) 400 mg PO Q4H PRN PRN Reason: Pain Ibuprofen (Motrin) 800 mg PO Q6H PRN PRN Reason: Pain Last Admin: 12/16/20 04:37 Dose: 800 mg Documented by: Lidocaine HCl (Xylocaine 1%) 50 ml INJECT ONETIME PRN PRN Reason: Laceration repair Methylergonovine Maleate (Methergine) 0.2 mg IM ASDIRECTED PRN PRN Reason: Post Hemorrhage Misoprostol (Cytotec) 200 mcg PO ONETIME PRN PRN Reason: Post Hemorrhage Nalbuphine HCl (Nubain) 10 mg IVPUSH Q1H PRN PRN Reason: Pain (severe 7-10) Ondansetron HCl (Zofran) 4 mg IVPUSH Q4H PRN PRN Reason: Nausea/Vomiting Ropivacaine (Naropin 0.2%) Confirm Administered Dose 20 ml .ROUTE .STWurl-MED ONE Stop: 12/15/20 10:50 Last Admin: 12/15/20 23:47 Dose: Not Given Documented by: Sodium Chloride (Saline Flush) 10 ml FLUSH ASDIRECTED PRN PRN Reason: Keep Vein Open Sodium Chloride (Saline Flush) 2.5 ml FLUSH ASDIRECTED PRN PRN Reason: Keep Vein Open Sodium Chloride (Normal Saline) 10 ml IV ASDIRECTED PRN PRN Reason: IV Use Sterile Water (Sterile Water For Irrigation) 1,000 ml IRR ASDIRECTED PRN PRN Reason: delivery Miguel Luu (Samckmg) 1 pad TOP ASDIRECTED PRN PRN Reason: comfort care - Exam General: Reports: Alert, Oriented Lungs: Reports: Normal Respiratory Effort Cardiovascular: Reports: Regular Rhythm GI/Abdominal Exam: Soft, Non-Tender Extremities: Normal Inspection, No Pedal Edema Psy/Mental Status: Reports: Alert, Normal Affect, Normal Mood
== END 2020-12-16 16:05 | disposition home or self-care (01) | DRG 560 ==
LOC: MW.OBCHECK 09:04 → MW.OB 09:05 → MW.OBCHECK 12:07 → MW.OB 12:08 → OBSVTOIN 16:28
PROVIDERS: ADMIT Obstetrics & Gynecology Obstetrics; ATTEND Obstetrics & Gynecology Obstetrics
PROC: 10E0XZZ Delivery of Products of Conception, External Approach (ICD-10-PCS; principal; 2020-12-15)
PROC: 3E0R3BZ Introduction of Anesthetic Agent into Spinal Canal, Percutaneous Approach (ICD-10-PCS; 2020-12-15)
PROC: 10907ZC Drainage of Amniotic Fluid, Therapeutic from Products of Conception, Via Natural or Artificial Opening (ICD-10-PCS; 2020-12-15)
DX: O69.81X0 Labor and delivery complicated by cord around neck, without compression, not applicable or unspecified (principal); Z3A.39 39 weeks gestation of pregnancy; Z37.0 Single live birth; Z20.822 Contact with and (suspected) exposure to COVID-19
CPT/HCPCS: 01967; 36415; 59409; 85014; 85018; 85027; 86592; 86850; 86900; 86901; A9270-GY; J2590; J2795; J3010; J7120; U0002

== ENCOUNTER 2024-05-22 08:41 | Inpatient (IN) | payer BC ==
[2024-05-22] MEDS ORDERED: Carboprost Tromethamine 250 MCG/1 mL Vial IM PRN (10:14)
[2024-05-22] MEDS ORDERED: Sodium Chloride 0.9% 10 ML Syringe FLUSH PRN (10:14)
[2024-05-22] MEDS ORDERED: Misoprostol 200 MCG Tab PO PRN (10:14)
[2024-05-22] MEDS ORDERED: Lidocaine 1% 50 ML MDV INJECT PRN (10:14)
[2024-05-22] MEDS ORDERED: Water For Irrigation,Sterile 1,000 ML Container IRR PRN (10:14)
[2024-05-22] MEDS ORDERED: Tranexamic Acid IN NACL,ISO-OS 1,000 MG in Premix Bag 1 BAG IV PRN ×2 (10:14→20:29)
[2024-05-22] MEDS ORDERED: Sodium Chloride 0.9% 2.5 ML Syringe FLUSH PRN (10:14)
[2024-05-22] MEDS ORDERED: Terbutaline 1 MG/ML SDV SUBCUT PRN (10:14)
[2024-05-22] MEDS ORDERED: Butorphanol 2 MG/ML SDV IVPUSH PRN (10:14)
[2024-05-22] MEDS ORDERED: Methylergonovine 0.2 MG/1 ML Amp IM PRN ×2 (10:14→20:29)
[2024-05-22] MEDS ORDERED: Sodium Chloride 0.9% 20 ML SDV IV PRN (10:14)
[2024-05-22] MEDS ORDERED: Oxytocin/0.9 % Sodium Chloride 30 UNIT/500 ML BAG IV SCH (10:15)
[2024-05-22 12:05] LABS: HEMATOCRIT 38.1 % (37.0-47.0); HEMOGLOBIN 13.2 g/dL (12.0-16.0); MEAN CORPUSCULAR HEMOGLOBIN 29.7 pg (28.0-32.0); MEAN CORPUSCULAR HGB CONC 34.6 g/dL (32.0-36.0); MEAN CORPUSCULAR VOLUME 85.8 fL (83.0-99.0); MEAN PLATELET VOLUME 11.8 fL (9.4-12.3); PLATELET COUNT,PLT 182 K/uL (150-400); RED BLOOD CELL COUNT 4.44 M/uL (4.10-5.30); WHITE BLOOD CELL COUNT,WBC 9.67 K/uL (3.9-11.3)
[2024-05-22] MEDS: Lactated Ringers 1,000 ML IV SCH (12:20)
[2024-05-22] MEDS: Oxytocin/0.9 % Sodium Chloride 30 UNIT/500 ML BAG IV SCH (12:20)
[2024-05-22] MEDS: Ropivacaine HCl/PF 200 ML ONE (19:38)
[2024-05-22] MEDS ORDERED: Misoprostol 200 MCG Tab RECTAL PRN (20:29)
[2024-05-22] MEDS ORDERED: Docusate Sodium 100 MG Cap PO PRN (20:29)
[2024-05-22] MEDS ORDERED: Ropivacaine HCl/PF 400 MG in Premix Bag 1 BAG EPIDUR SCH (20:45)
[2024-05-22] MEDS ORDERED: Phenylephrine HCl In 0.9% NaCl 1 MG/10 ML Syringe IVPUSH PRN (20:45)
[2024-05-22] MEDS ORDERED: ePHEDrine 50 MG/ML SDV IVPUSH PRN ×2 (20:45)
[2024-05-22 21:14] LABS: PH,UMBILICAL ARTERIAL 7.27 (7.18-7.38); PH,UMBILICAL VENOUS 7.318 (7.25-7.45)
[2024-05-22] MEDS: Lanolin 100% Cream 7 GM Tube TOP PRN (21:38)
[2024-05-22] MEDS: Benzocaine/Menthol 20%-0.5% Spray 78 GM Cannister TOP PRN (21:38)
[2024-05-22] MEDS: Witch Hazel Medicated Pads 40/Jar TOP PRN (21:38)
[2024-05-23] MEDS: Acetaminophen 500 MG Tab PO PRN (00:21)
[2024-05-23] MEDS: Ibuprofen 800 MG Tab PO PRN (03:15)
[2024-05-23 05:44] LABS: HEMATOCRIT 34.2 % (37.0-47.0)
[2024-05-23] MEDS: Phenylephrine HCl In 0.9% NaCl 1 MG/10 ML Syringe ONE (08:48)
[2024-05-23] MEDS: Bupivacaine 0.5% 10 ML SDV ONE (08:48)
[2024-05-23] MEDS: Prenatal Multivitamin with Calcium/Folic Acid/Iron Tab PO SCH (09:36)
[2024-05-24 08:45] VITALS: BP 121/76; PULSE 70
== END 2024-05-24 11:31 | disposition home or self-care (01) | DRG 560 ==
LOC: MW.OBCHECK 08:41 → MW.OB 08:52 → MW.OBCHECK 10:14 → OBSVTOIN 19:59 → MW.OB 05-23 00:19
PROVIDERS: ADMIT Obstetrics & Gynecology; ATTEND Obstetrics & Gynecology
PROC: 10E0XZZ Delivery of Products of Conception, External Approach (ICD-10-PCS; principal; 2024-05-22)
PROC: 3E033VJ Introduction of Other Hormone into Peripheral Vein, Percutaneous Approach (ICD-10-PCS; 2024-05-22)
PROC: 10907ZC Drainage of Amniotic Fluid, Therapeutic from Products of Conception, Via Natural or Artificial Opening (ICD-10-PCS; 2024-05-22)
PROC: 3E0R3BZ Introduction of Anesthetic Agent into Spinal Canal, Percutaneous Approach (ICD-10-PCS; 2024-05-22)
PROC: 00HU33Z Insertion of Infusion Device into Spinal Canal, Percutaneous Approach (ICD-10-PCS; 2024-05-22)
DX: O80 Encounter for full-term uncomplicated delivery (principal); Z3A.39 39 weeks gestation of pregnancy; Z37.0 Single live birth; Z90.49 Acquired absence of other specified parts of digestive tract
CPT/HCPCS: 01967; 36415; 59025; 82803; 85014; 85018; 85027; 86592; 86850; 86900; 86901; A9270-GY; J0665; J2371; J2590; J2795; J7120